=== PATIENT | male | born 1950 | race Caucasian/White ===

== ENCOUNTER → 2017-11-23 | Outpatient (CLI) | payer MEDICARE, OTHER ==
[~2017-11-23] MED LIST: CEPHALEXIN500 M1 PO; GABAPENTIN400 M1 PO; LISINOPRIL; LISINOPRIL/HCTZ1 TAB PO; PEPCID 20MG TAB20 MG PO; PERCOCET 325 MG1 TA2 PO; SIMVISTATIN; TOPROL; TRAMADOL50 MG PO; VALTREX PO
== END ==
LOC: COL.RAD 09:28
DX: Z13.6 Encounter for screening for cardiovascular disorders (principal); I77.819 Aortic ectasia, unspecified site; F17.200 Nicotine dependence, unspecified, uncomplicated

== ENCOUNTER → 2023-05-10 | Outpatient (CLI) | payer MEDICARE | LOC: COL.RAD 13:56 | DX: R91.1 Solitary pulmonary nodule (principal); F17.200 Nicotine dependence, unspecified, uncomplicated ==

== ENCOUNTER → 2023-10-26 | Outpatient (CLI) | payer MEDICARE, OTHER | LOC: COL.RAD 14:16 | DX: R91.1 Solitary pulmonary nodule (principal) ==